=== PATIENT | male | born 1955 | race Caucasian/White ===

== ENCOUNTER 2023-06-30 16:51 | Outpatient (OUT) | payer MEDICARE, SELFPAY ==
[2023-06-30 17:19] LABS: Bilirubin Urine NEGATIVE (NEGATIVE); Blood Urine NEGATIVE (NEGATIVE); Clarity Urine CLEAR (CLEAR); Color Urine DK. YELLOW (YELLOW); Glucose Urine UA NEGATIVE (NEGATIVE); Ketones Urine TRACE mg/dL (NEGATIVE); Leukocyte Esterase Urine NEGATIVE (NEGATIVE); Nitrite Urine NEGATIVE (NEGATIVE); Protein Urine 100 mg/dL (NEG/TRACE); Specific Gravity Urine >=1.030 (1.005-1.025)
[2023-06-30 17:35] LABS: Bacteria Urine TRACE #/HPF (NONE SEEN); Cast Seen? NONE SEEN #/LPF (NONE SEEN); Crystals Seen? None Seen #/HPF (None Seen); Mucus Urine MODERATE (NONE SEEN); RBC Urine 0-2 #/HPF (0-2); Squamous Epithelial Cell Urine FEW #/LPF (NONE/RARE); WBC Urine NONE SEEN #/HPF (NONE SEEN)
[2023-06-30 17:51] LABS: Estimated Average Glucose 154 mg/dL
== END 2023-06-30 16:52 | disposition home or self-care (01) ==
LOC: LAB 16:55
PROVIDERS: PCP Nurse Practitioner; Visit Provider Nurse Practitioner
DX: R82.90 Unspecified abnormal findings in urine (principal); E11.9 Type 2 diabetes mellitus without complications
CPT/HCPCS: 36415; 81001; 83036

== ENCOUNTER 2024-07-28 15:05 | Outpatient (OUT) | payer MEDICARE, SELFPAY ==
[2024-07-28 15:50] LABS: Estimated Average Glucose 140 mg/dL; Glycohemoglobin A1C 6.5 % (4.5-6.2)
[2024-07-28 15:55] LABS: Basophils Absolute Auto 0.1 10^3/uL (0.0-0.1); Basophils Percent Auto 1.6 % (0.2-2.0); Eosinophils Absolute Auto 0.4 10^3/uL (0.0-0.7); Eosinophils Percent Auto 6.1 % (0.9-7.0); Hematocrit 41.8 % (42.0-54.0); Hemoglobin 14.1 g/dL (14.0-18.0); Immature Granulocytes Abs Auto 0.02 10^3/uL (0.00-0.03); Immature Granulocytes Pct Auto 0.3 % (0.0-0.5); Lymphocytes Absolute Auto 1.9 10^3/uL (1.2-3.8); Mean Corpuscular HGB Conc 33.7 g/dL (29.9-35.2); Mean Corpuscular Hemoglobin 30.2 pg (25.9-34.0); Mean Corpuscular Volume 89.5 fL (80.0-94.0); Mean Platelet Volume 11.9 fL (9.5-13.5); Monocytes Absolute Auto 0.5 10^3/uL (0.3-0.8); Monocytes Percent Auto 8.5 % (1.7-12.0); Neutrophils Absolute Auto 2.9 10^3/uL (1.4-6.5); Neutrophils Percent Auto 50.5 % (43.0-75.0); Platelet Count 208 10^3/uL (150-450); Red Blood Count 4.67 10^6/uL (4.70-6.10); Red Cell Distribution Width 12.8 % (11.0-15.0); White Blood Count 5.8 10^3/uL (4.0-11.0)
[2024-07-28 16:00] LABS: Alanine Aminotransferase 40 U/L (16-63); Albumin Globulin Ratio 1.2; Albumin Level 3.7 g/dL (3.4-5.0); Alkaline Phosphatase 73 U/L (46-116); Aspartate Amino Transferase 21 U/L (15-37); BUN Creatinine Ratio 12.6; Bilirubin Total 0.3 mg/dL (0.2-1.0); Calcium 9.1 mg/dL (8.5-10.1); Chloride 104 mmol/L (98-107); Chol HDL Ratio 2.7; Cholesterol 122 mg/dL (<=200); Estimated GFR (African America >60 (>=60); Estimated GFR (Non-African Ame >60 (>=60); Globulin 3.2 g/dL; Glucose 128 mg/dL (74-106); HDL Cholesterol 45 mg/dL (40-60); LDL Cholesterol Calculated 58.8 mg/dL; Potassium 4.6 mmol/L (3.5-5.1); Sodium 138 mmol/L (136-145); Total Protein 6.9 g/dL (6.4-8.2); Triglycerides 91 mg/dL (<=150); VLDL CHOLESTEROL 18.2 mg/dL
[2024-07-28 16:13] LABS: Anion Gap 12.4; Carbon Dioxide 26.2 mmol/L (21.0-32.0)
[2024-07-28 16:20] LABS: Prostate Specific Antigen Scrn 2.01 ng/mL (<=4.00)
[2024-07-28 17:05] LABS: Creatinine Urine Random 65.71 mg/dL (20.00-300.00); Microalbum Creatinine Ratio Ur 57.8 mg/g (0.0-29.9); Microalbumin Urine Random 3.8 mg/dL (<=30.0)
[2024-07-28 17:30] LABS: Bilirubin Urine NEGATIVE (NEGATIVE); Blood Urine NEGATIVE (NEGATIVE); Clarity Urine CLEAR (CLEAR); Color Urine LT. YELLOW (YELLOW); Glucose Urine UA >=1000 mg/dL (NEGATIVE); Ketones Urine NEGATIVE (NEGATIVE); Leukocyte Esterase Urine NEGATIVE (NEGATIVE); Nitrite Urine NEGATIVE (NEGATIVE); Protein Urine NEGATIVE (NEG/TRACE); Urine Microscopic Indicated NO; Urobilinogen Urine 0.2 EU/dL (0.2-1.0); pH Urine 5.5 (5.0-9.0)
== END 2024-07-28 15:06 | disposition home or self-care (01) ==
LOC: LAB 15:07
PROVIDERS: PCP Nurse Practitioner; Visit Provider Nurse Practitioner
DX: D50.9 Iron deficiency anemia, unspecified (principal); I10 Essential (primary) hypertension; E55.9 Vitamin D deficiency, unspecified; E78.2 Mixed hyperlipidemia; E11.9 Type 2 diabetes mellitus without complications; Z12.5 Encounter for screening for malignant neoplasm of prostate
CPT/HCPCS: 36415; 80053; 80061; 81003; 82043; 82306; 82570; 83036; 83540; 85025; G0103

== ENCOUNTER 2024-09-05 23:14 | Emergency (ER) | payer MEDICARE, SELFPAY ==
[2024-09-05 23:22] VITALS: BP 172/73; PULSE 80; TEMP 36.8; O2SAT 98; BMI 31.2
--- NOTE | 2024-09-05 23:49 | XR_ITS ---
The [address] [address] Patient Name: ZACHARY ALVA MRN: [id number] date: 1955 Sex: M Assigned Patient Location: ER Current Patient Location: ED.MAIN Accession/Order Number: [id number] Exam Date: 09/05/2024 23:52 Report Date: 09/06/2024 00:30 At the request of: LAURA MARKER Procedure: XR foot LT min 3V XR foot LT min 3V, 09/05/2024 10:52 PM CDT: History: mid foot injury. . Comparison: None. Technique: 3 views left foot Findings/Impression: There is no acute fracture or malalignment. There is prominent dorsal soft tissue swelling of the midfoot. Electronically authenticated by: ROSALINA ROJAS Date: 09/06/2024 00:30
--- NOTE | 2024-09-05 23:50 | ED_ITS ---
HPI HPI - Extremity Injury (Lower) General Chief Complaint: Extremity Injury, Lower Stated Complaint: L FOOT INJURY [facility] Time Seen by Provider: 09/05/24 23:49 Source: patient Mode of arrival: Wheelchair Limitations: no limitations History of Present Illness HPI Narrative: This 69-year-old male presents for evaluation of left midfoot pain. The patient was at work and a large elevator weight fell onto his left foot. He has a picture on his phone of a large area of swelling at the midfoot area. The swelling has since gone down somewhat. He has pain with weightbearing. He was wearing tennis shoes and socks and did not get hit directly onto his skin with the weight. He does have an abrasion over the midfoot with swelling. He did not fall. He has no additional injuries or complaints. He declines a tetanus shot. He does have a history of type 2 diabetes and neuropathy for which he takes gabapentin. He denies that he is having a lot of pain but his family member states that he sounds like a [place] when he tries to weight-bear. Related Data Home Medications ?Medication ?Instructions ?Recorded ?Confirmed amlodipine 10 mg tablet mg 09/05/24 dapagliflozin propanediol 5 mg mg 09/05/24 tablet (Farxiga) gabapentin 300 mg capsule mg 09/05/24 glipizide 5 mg tablet mg 09/05/24 hydrochlorothiazide 12.5 mg capsule mg 09/05/24 lisinopril 40 mg tablet mg 09/05/24 metformin 500 mg tablet,extended mg PO 09/05/24 release 24 hr simvastatin 10 mg tablet mg 09/05/24 Allergies Allergy/AdvReac Type Severity Reaction Status Date / Time Penicillins Allergy Unknown Unknown Verified 09/05/24 23:29 Opioid HPI Opioid Management Most Recent Pain and Opioid Data: Last Pain Scale 5 09/05/24 23:34 Last ED Pain Assessment 09/05/24 23:34 Review of Systems ROS Status of ROS 10 or more systems reviewed and unremark able except as noted in history and below PFSH PFSH Social History Little interest or pleasure in doing things: not at all Feeling down, depressed, or hopeless: not at all Exam Narrative Exam Narrative: Vital signs and Nursing Notes reviewed: Patient is afebrile with a normal pulse, blood pressure is elevated at 172/73, he is not hypoxic with pulse ox of 98% on room air General: Awake, alert, oriented, no acute distress, lying comfortably on the stretcher HEENT: Normocephalic atraumatic, mucous membranes are moist and pink, eyes are clear Chest: Lungs are clear to auscultation with good air entry, there is no wheezing rhonchi or rales appreciated no accessory muscle use, patient is speaking in complete sentences-no chest wall tenderness to palpation CVS: Regular rate and rhythm S1-S2, no murmurs rubs or gallops, pulses are brisk and equal bilaterally Extremities: There is mild to moderate swelling over the left midfoot with a superficial abrasion over the midfoot as well. Dorsalis pedis pulses brisk. There is no active bleeding. There is no bony tenderness or deformity to the toes. Patient is able to flex extend and rotate the foot without difficulty. Skin: Abrasion over the left midfoot Neuro: No focal deficits Constitutional Vital Signs, click to edit/add: Last Vital Signs Temp 98.2 F 09/05/24 23:22 Pulse 80 09/05/24 23:22 Resp 18 09/05/24 23:22 BP 172/73 H 09/05/24 23:22 Pulse Ox 98 09/05/24 23:22 O2 Del Method Room Air 09/05/24 23:22 Course Vital Signs Vital signs: Vital Signs Temperature 98.2 F 09/05/24 23:22 Pulse Rate 80 09/05/24 23:22 Respiratory Rate 18 09/05/24 23:22 Blood Pressure 172/73 H 09/05/24 23:22 Pulse Oximetry 98 09/05/24 23:22 Oxygen Delivery Method Room Air 09/05/24 23:22 Temperature 98.2 F 09/05/24 23:22 Pulse Rate 80 09/05/24 23:22 Respiratory Rate 18 09/05/24 23:22 Blood Pressure 172/73 H 09/05/24 23:22 Pulse Oximetry 98 09/05/24 23:22 Oxygen Delivery Method Room Air 09/05/24 23:22 MDM - Extremity Injury (Lower) MDM Narrative Medical decision making narrative: This 69-year-old male presents for evaluation of a left foot injury. He was at work and a weight fell on his foot while he was trying to move it. He had marked swelling initially over the midfoot. He has a superficial abrasion that he sustained when the weight hit his foot however he was wearing socks and shoes. He declined a tetanus shot. He has some mild tenderness swelling and an abrasion to the midfoot area. He is otherwise neurovascularly intact. He had taken ibuprofen prior to arrival. X-ray of the extremity was read by radiology and does not show any acute fracture but does show some soft tissue swelling. While in the emergency department ice was applied over the left foot and the swelling in the midfoot continued to decrease. He declined a postop shoe as well as his tetanus shot but was agreeable to an Jacky wrap. A 3 inch Jacky wrap was placed around the midfoot for comfort and compression. No medications were needed while he was a patient in the emergency department he was discharged home to follow-up with outpatient Workmen's Comp. as needed. Medical Records Medical records narrative: The [place] [id number] XRay Report Signed Patient: ZACHARY ALVA MR#: [id number] : 1955 Acct:[id number] Age/Sex: 69 / M ADM Date: 09/05/24 Loc: ER Attending Dr: Ordering Physician: Mini Sharma Date of Service: 09/05/24 Procedure(s): XR foot LT min 3V Accession Number(s): [id number] cc: Lucy Lipscomb NP; Mini Sharma~ The [address] [address] Patient Name: ZACHARY ALVA MRN: [id number] date: 1955 Sex: M Assigned Patient Location: ER Current Patient Location: ED.MAIN Accession/Order Number: [id number] Exam Date: 09/05/2024 23:52 Report Date: 09/06/2024 00:30 At the request of: MINI SHARMA Procedure: XR foot LT min 3V XR foot LT min 3V, 09/05/2024 10:52 PM CDT: History: mid foot injury. . Comparison: None. Technique: 3 views left foot Findings/Impression: There is no acute fracture or malalignment. There is prominent dorsal soft tissue swelling of the midfoot. Electronically authenticated by: ROSALINA ROJAS Date: 09/06/2024 00:30 Discharge Plan Discharge Chief Complaint: Extremity Injury, Lower Clinical Impression: Contusion of foot, left Patient Disposition: Home, Self-Care Time of Disposition Decision: 00:39 Condition: Good Prescriptions / Home Meds: No Action simvastatin 10 mg tablet amlodipine 10 mg tablet hydrochlorothiazide 12.5 mg capsule gabapentin 300 mg capsule lisinopril 40 mg tablet metformin 500 mg tablet extended release 24 hr PO glipizide 5 mg tablet dapagliflozin propanediol [Farxiga] 5 mg tablet Print Language: Azeri Instructions: Foot Contusion (ED) Referrals: Lucy Lipscomb NP [Primary Care Provider] - 1 week
--- OUTSIDE RECORDS SUMMARY | 2024-09-06 00:19 | XMS_ITS | CCD ---
Demographics Address [address] [place] [id number] Preferred Language en Marital Status Rastafari Affiliation Unknown Race White Ethnic Group Not or Lati no Author Organization [facility] Care Team Providers Care Tem[place] Name Role Phone ISAÍAS LIPSCOMB Admitting Unavailable HAYHISAÍAS SOUSA Attending Unavailable AICISAÍAS ROGERS Primary Care Unavailable ISAÍAS LIPSCOMB Consulting Unavailable DO Mateus Fabian Attending Provider Lucy Lipscomb Primary Care Provider Emerson Rowland MD Primary Care Provider [phone] Ruel RISK ASSESSMENT CONSULTANT, Lucy Unavailable Mateus Fabian Admitting Unavailable Mateus Fabian Attending Unavailable Lucy Lipscomb Primary Care Unavailable Mateus Fabian Attending Unavailable Lucy Lipscomb Primary Care Unavailable Mateus Fabian Admitting Unavailable Eugenio MONROE Attending Unavailable LUCY LIPSCOMB Referring Unavailable MATEUS FABIAN Attending Unavailable MATEUS FABIAN Attending Unavailable Allergies Allergy Classification Reported Allergen(s) Allergy Type Date of Onset Reaction(s) Facility (1 source) Penicillins Drug allergy (disorder) 01-06-2017 [facility] Repository (1 source) Penicillin; Translations: [penicillin] Drug Allergy [facility] Repository Medications Current Medications Medication Drug Class(es) Dates Sig (Normalized) Sig (Original) amLODIPine 10 mg oral tablet (2 sources) Dihydropyridine Calcium Channel Chanel take 1 tablet by mouth in the morning amLODIPine (Norvasc) 10 MG tablet Take 10 mg by mouth in the morning. 0 Active ascorbic acid 500 mg chewable tablet (2 sources) Vitamin C ascorbic acid (Vitamin C) 500 MG chewable tablet every 12 (twelve) hours. 0 Active cetirizine hydrochloride 10 mg oral tablet (2 sources) Histamine-1 Receptor Antagonist take 1 tablet by mouth once daily cetirizine (ZyrTEC ALLERGY) 10 MG tablet Take 10 mg by mouth 1 (one) time each day at the same time. 0 Active Continuous Blood Gluc Primer Supervisor (FreeStyle Brigida 2 [place]) device (2 sources) Start: 02-20-2023 Continuous Blood Gluc Primer Supervisor (FreeStyle Brigida 2 [place]) device USE DAILY DIRECTED 0 02/20/2023 Active Continuous Blood Gluc Sensor (FreeStyle Brigida 2 Sensor) misc (3 sources) Start: 01-05-2024 End: 02-02-2024 Continuous Blood Gluc Sensor (FreeStyle Brigida 2 Sensor) misc Indications: Type 2 diabetes mellitus with diabetic neuropathy, without long-term current use of insulin (CMS/HCC) Apply 1 each topically in the morning for 28 days. 2 each 11 01/05/2024 02/02/2024 Active Start: 07-17-2023 End: 01-05-2024 Continuous Blood Gluc Sensor (FreeStyle Brigida 2 Sensor) misc USE 1 EACH DIRECTED 0 07/17/2023 01/05/2024 Discontinued (Reorder) dapagliflozin 5 mg oral tablet (2 sources) Sodium-Glucose Cotransporter 2 Inhibitor Start: 01-05-2024 take 1 tablet by mouth once daily dapagliflozin (Farxiga) 5 MG Indications: Type 2 diabetes mellitus without complications (CMS/HCC) TAKE 1 TABLET BY MOUTH EVERY DAY 90 tablet 0 01/05/2024 Active ferrous sulfate 325 mg oral tablet (2 sources) take 1 tablet by mouth once daily ferrous sulfate 325 (65 Fe) MG tablet Take 325 mg by mouth 1 (one) time each day at the same time. 0 Active fluticasone propionate 0.05 mg/actuat metered dose nasal spray (2 sources) Corticosteroid take 2 spray(s) nasal route once daily fluticasone (Flonase) 50 MCG/ACT nasal spray Administer 2 sprays into each nostril 1 (one) time each day at the same time. 0 Active gabapentin 300 mg oral capsule (2 sources) Anti-epileptic Agent take 1 capsule by mouth in the morning, then take 1 capsule by mouth in the evening, then take 1 capsule by mouth at bedtime gabapentin (Neurontin) 300 MG capsule Take 300 mg by mouth in the morning and 300 mg in the evening and 300 mg before bedtime. 0 Active glipiZIDE 5 mg oral tablet (2 sources) Sulfonylurea Start: 01-05-2024 take 1 tablet by mouth twice daily glipiZIDE (Glucotrol) 5 MG tablet Indications: Type 2 diabetes mellitus without complications (CMS/HCC) TAKE 1 TABLET BY MOUTH TWICE A DAY 180 tablet 0 01/05/2024 Active hydroCHLOROthiazide 12.5 mg oral capsule (2 sources) Thiazide Diuretic take 1 capsule by mouth in the morning hydroCHLOROthiazide (Microzide) 12.5 MG capsule Take 12.5 mg by mouth in the morning. 0 Active lisinopril 40 mg oral tablet (2 sources) Angiotensin Converting Enzyme Inhibitor take 1 tablet by mouth in the morning lisinopril 40 MG tablet Take 40 mg by mouth in the morning. 0 Active 24 hr metFORMIN hydrochloride 500 mg extended release oral tablet (2 sources) Biguanide Start: 01-05-2024 take 2 tablets by mouth twice daily metFORMIN XR (Glucophage-XR) 500 MG 24 hr tablet Indications: Type 2 diabetes mellitus without complications (CMS/HCC) TAKE 2 TABLETS BY MOUTH TWICE A DAY 360 tablet 0 01/05/2024 Active rOPINIRole 2 mg oral tablet (2 sources) Nonergot Dopamine Agonist take 1 tablet by mouth once daily rOPINIRole (Requip) 2 MG tablet Take 2 mg by mouth 1 (one) time each day at the same time. 0 Active simvastatin 10 mg oral tablet (2 sources) HMG-CoA Reductase Inhibitor Start: 01-05-2024 take 1 tablet by mouth once daily at bedtime simvastatin (Zocor) 10 MG tablet Indications: Hyperlipidemia, unspecified (CMS/HCC) TAKE 1 TABLET BY MOUTH EVERYDAY AT BEDTIME 90 tablet 0 01/05/2024 Active Problems Active Problems Problem Classification Problem Date Documented Date Episodic/Chronic Diabetes mellitus with complications (3 sources) Type 2 diabetes mellitus; Translations: [Type 2 diabetes mellitus with diabetic neuropathy, unspecified] Onset: 01-05-2024 01-05-2024 Chronic Diabetes mellitus without complication (4 sources) Type 2 diabetes mellitus without complications; Translations: [TYPE 2 DM WITHOUT COMPLICATIONS] Onset: 02-18-2023 Chronic Other screening for suspected conditions (not mental disorders or infectious disease) (1 source) Encounter for screening for malignant neoplasm of prostate; Translations: [ENC SCREEN MALIG NEOPLASM PROSTATE] Onset: 02-21-2023 Episodic Other upper respiratory disease (2 sources) Deviated nasal septum; Translations: [Deviated nasal septum] Onset: 01-12-2024 01-12-2024 Episodic Unclassified (1 source) Encounter for preprocedural cardiovascular examination; Translations: [Encounter for preprocedural cardiovascular examination] Onset: 01-05-2024 Past or Other Problems Problem Classification Problem Date Documented Da te Episodic/Chronic Other lower respiratory disease (2 sources) H/O: respiratory disease; Translations: [Personal history of other diseases of the respiratory system] Onset: 08-25-2023 08-25-2023 Episodic Results Test Name Value Interpretation Reference Range Facility [facility] 01-12-2024 L Specimen: [id number] Received: 01/12/24 Status: JOHNY Clark Num: [id number] Spec Type: Surgical Subm Dr: Mateus Fabian DO Tissues: A Cartilage - Shavings (NASAL CART) Procedures: HE, Gross/Micro L3 Age/ Patient Sex Location Account Attending Physician Eulogio Alva 68/M [place] [id number] Mateus Fabian DO SPEC NUM: [id number] RECD: 01/12/24 STATUS: JOHNY CLARK NUM: [id number] DORA: 01/12/24- SUBM DR: Mateus Fabian DO ENTERED: 01/12/[address] [facility] [address]: Deni [facility] SPEC TYPE: Surgical DEPT: S ENTERED BY: [id number] RECV BY: [id number] ORDERED: HE, Gross/Micro L3 ORDERED: HE, Gross/Micro L3 Pathological Diagnosis Nasal cartilage, septoplasty: - See gross description. Clinical Information Deviated septum/enlarged turbinates Gross Description Received in formalin labeled with the patient's name, date of and nasal cartilage is a 3.8 x 3.0 x 0.6 cm aggregate of jaimes-burroughs cartilaginous tissue consistent with nasal cartilage. There are no polyps or suspicious foci identified grossly. A gross photo is taken. Gross examination only. CPT Codes 83596 Gross Photo -- -- Specimen: [id number] Received: 01/12/24 Status: JOHNY Clark Num: [id number] Spec Type: Surgical Subm Dr: Mateus Fabian DO Tissues: A Cartilage - Shavings (NASAL CART) Procedures: Mik CAN/Jossy L3 -- Patient: Eulogio Alva [id number] (Continued) -- Signed (signatu re on file) Patricia Rich MD 01/14/24 1312 Normal [facility] Basic Metabolic Panelon Anion gap [Moles/Vol] 10.3 mmol/L Normal 6.0-15.0 [facility] Comment on above: Performed By: #### B MP #### [facility] [address] Calcium [Mass/Vol] 9.8 mg/dL Normal 8.6-10.3 [facility] Comment on above: Result Comment: PERF ORMED BY: [place] [address] PATHOLOGIST CHANGE ANALYST HALLEY GUTIERREZ M.D. Performed By: #### B MP #### [facility] [address] [place] [address] [place] Chloride [Moles/Vol] 103 mmol/L Normal 98-107 [facility] Comment on above: Performed By: #### B MP #### [facility] [address] [place] [address] [place] CO2 [Moles/Vol] 30.6 mmol/L Normal 21.0-31.0 [facility] Comment on above: Performed By: #### B MP #### [address] Creatinine [Mass/Vol] 1.07 mg/dL Normal 0.70-1.30 [facility] Comment on above: Performed By: #### B MP #### [facility] [address] [place] [address] [place] GFR/1.73 sq M.predicted MDRD (S/P/Bld) [Vol rate/Area] mL/min/{1.73_m2} Normal [facility] Comment on above: Performed By: #### B MP #### [place] [address] [place] Glucose [Mass/Vol] 176 mg/dL High 70-100 [facility] Comment on above: Result Comment: Chicken Glucose Reference Range is dependent on time and content of last meal. Glucose of more than 200 mg/dL in a nonstressed, ambulatory subject supports the diagnosis of Diabetes Mellitus. ADA recommended reference range Performed By: #### B MP #### [facility] [address] Potassium [Moles/Vol] 3.9 mmol/L Normal 3.5-5.1 [facility] Comment on above: Performed By: #### B MP #### [facility] [address] Sodium [Moles/Vol] 140 mmol/L Normal 136-145 [facility] Comment on above: Performed By: #### B MP #### [facility] [address] Urea nitrogen [Mass/Vol] 20 mg/dL Normal 7-25 [facility] Comment on above: Performed By: #### B MP #### [address] Basophils Auto (Bld) [#/Vol] Ordered By: Mateus Fabian on 01-05-2024 Basophils (Bld) [#/Vol] 0.1 10*3/uL 0.0-0.2 [facility] Basophils/100 WBC Auto (Bld) Ordered By: Mateus Fabian on 01-05-2024 Basophils/100 WBC (Bld) 1.1 % . [facility] Calcium [Mass/volume] in Ser um or PlasmaOrdered By: Mateus Fabian on 01-05-2024 Calcium [Mass/Vol] 9.8 mg/dL 8.6-10.3 [facility] Carbon dioxide, total [Moles /volume] in Serum or PlasmaOrdered By: Mateus Fabian on 01-05-2024 CO2 [Moles/Vol] 30.6 mmol/L 21.0-31.0 [facility] Chloride [Moles/volume] in S francine or PlasmaOrdered By: Mateus Fabian on 01-05-2024 Chloride [Moles/Vol] 103 mmol/L 98-107 [facility] Complete Blood Count Auto Di ffon 01-05-2024 Basophils (Bld) [#/Vol] 0.1 10*3/uL Normal 0.0-0.2 [facility] Comment on above: Result Comment: PERF ORMED BY: [place] [address] PATHOLOGIST CHANGE ANALYST HALLEY GUTIERREZ M.D. Performed By: #### C BC #### [place] [address] [place] Basophils/100 WBC (Bld) 1.1 % Normal . [facility] Comment on above: Performed By: #### C BC #### [facility] [address] Eosinophils (Bld) [#/Vol] 0.2 10*3/uL Normal 0.0-0.45 [facility] Comment on above: Performed By: #### C BC #### [facility] [address] Eosinophils/100 WBC (Bld) 3.3 % Normal . [facility] Comment on above: Performed By: #### C BC #### [address] Erythrocyte distribution width (RBC) [Ratio] 13.9 % Normal 12.0-14.8 [facility] Comment on above: Performed By: #### C BC #### [address] Hematocrit (Bld) [Volume fraction] 40.7 % Normal 38.8-50.0 [facility] Comment on above: Performed By: #### C BC #### [address] Hemoglobin (Bld) [Mass/Vol] 13.6 g/dL Normal 13.0-17.0 [facility] Comment on above: Performed By: #### C BC #### [address] Lymphocytes (Bld) [#/Vol] 1.9 10*3/uL Normal 1.00-4.8 [facility] Comment on above: Performed By: #### C BC #### [address] Lymphocytes/100 WBC (Bld) 34.3 % Normal . [facility] Comment on above: Performed By: #### C BC #### [address] MCH (RBC) [Entitic mass] 29.8 pg Normal 27.5-35.2 [facility] Comment on above: Performed By: #### C BC #### [facility] [address] MCV (RBC) [Entitic vol] 89.1 fL Normal 83.5-101 [facility] Comment on above: Performed By: #### C BC #### [facility] [address] Mean Corpuscular HGB Conc 33.4 g/dL Normal 32.5-35.6 [facility] Comment on above: Performed By: #### C BC #### [facility] [address] Monocytes (Bld) [#/Vol] 0.5 10*3/uL Normal 0.0-0.8 [facility] Comment on above: Performed By: #### C BC #### [facility] [address] Monocytes/100 WBC (Bld) 8.0 % Normal . [facility] Comment on above: Performed By: #### C BC #### [facility] [address] Neutrophils (Bld) [#/Vol] 3.0 10*3/uL Normal 1.8-7.7 [facility] Comment on above: Performed By: #### C BC #### [facility] [address] Neutrophils/100 WBC (Bld) 53.3 % Normal . [facility] Comment on above: Performed By: #### C BC #### [facility] [address] NRBC% 0.1 /100{WBC} Normal 0-0.5 [facility] Comment on above: Performed By: #### C BC #### [facility] [address] Platelet mean volume (Bld) [Entitic vol] 10.3 fL High 6.6-10.1 [facility] Comment on above: Performed By: #### C BC #### [facility] [address] Platelets (Bld) [#/Vol] 192 10*3/uL Normal 150-450 [facility] Comment on above: Performed By: #### C BC #### [facility] [address] RBC (Bld) [#/Vol] 4.57 10*6/uL Normal 3.90-5.60 [facility] Comment on above: Performed By: #### C BC #### [facility] [address] WBC (Bld) [#/Vol] 5.6 10*3/uL Normal 4.1-10.5 [facility] Comment on above: Performed By: #### C BC #### [address] Creatinine [Mass/volume] in Serum or PlasmaOrdered By: Mateus Fabian on 01-05-2024 Creatinine [Mass/Vol] 1.07 mg/dL 0.70-1.30 [facility] ECG 12 lead ECGon 01-05-2024 ECG 12 lead ECG [facility] [employer] [address] [place] [address] Electrocardiograph Report Signed Patient: Eulogio Alva MR#: [id number] : 1955 Acct:[id number] Age/Sex: 68 / M ADM Date: 01/05/24 Loc: Room: Type: [facility] Attending Dr: Mateus Fabian DO Ordering Provider: Mateus Fabian DO Date of Service: 01/05/2405/23/1459 ECG/ECG 12 lead ECG: pst Copies to: Test Reason : Blood Pressure : / mmHG Vent. Rate : 075 BPM Atrial Rate : 075 BPM P-R Int : 136 ms QRS Dur : 094 ms QT Int : 384 ms P-R-T Axes : 033 075 044 degrees QTc Int : 428 ms Normal sinus rhythm Nonspecific T wave abnormality Abnormal ECG No previous ECGs available Confirmed by NILSA ASHLEY MD ([id number]) on 01/06/2024 2:41:39 PM Referred By: Electronically Signed By:NILSA ASHLEY MD Transcribed By: MUS Signed By Nilsa Ashley MD 0 01/06/24 1441 Normal [facility] Eosinophils Auto (Bld) [#/Vo l]Ordered By: Mateus Fabian on 01-05-2024 Eosinophils (Bld) [#/Vol] 0.2 10*3/uL 0.0-0.45 [facility] Eosinophils/100 WBC Auto (Bl d)Ordered By: Mateus Fabian on 01-05-2024 Eosinophils/100 WBC (Bld) 3.3 % . [facility] Erythrocyte distribution wid th Auto (RBC) [Ratio]Ordered By: Mateus Fabian on 01-05-2024 Erythrocyte distribution width (RBC) [Ratio] 13.9 % 12.0-14.8 [facility] Glucose [Mass/volume] in Ser um or PlasmaOrdered By: Mateus Fabian on 01-05-2024 Glucose [Mass/Vol] 176 mg/dL 70-100 [facility] Comment on above: ADA recommended refe rence rangeRandom Glucose Reference Range is dependent on time and content of last meal. Glucose of more than 200 mg/dL in a nonstressed, ambulatory subject supports the diagnosis of Diabetes Mellitus. Hematocrit Auto (Bld) [Volum e fraction]Ordered By: Mateus Fabian on 01-05-2024 Hematocrit (Bld) [Volume fraction] 40.7 % 38.8-50.0 [facility] Hemoglobin [Mass/volume] in BloodOrdered By: Mateus Fabian on 01-05-2024 Hemoglobin (Bld) [Mass/Vol] 13.6 g/dL 13.0-17.0 [facility] Leukocytes [#/volume] correc alvin for nucleated erythrocytes in Blood by Automated counOrdered By: Mateus Fabian on 01-05-2024 WBC corrected for nucl RBC Auto (Bld) [#/Vol] 5.6 10*3/uL 4.1-10.5 [facility] Lymphocytes Auto (Bld) [#/Vo l]Ordered By: Mateus Fabian on 01-05-2024 Lymphocytes (Bld) [#/Vol] 1.9 10*3/uL 1.00-4.8 [facility] Lymphocytes/100 WBC Auto (Bl d)Ordered By: Mateus Fabian on 01-05-2024 Lymphocytes/100 WBC (Bld) 34.3 % . [facility] MCH Auto (RBC) [Entitic mass ]Ordered By: Mateus Fabian on 01-05-2024 MCH (RBC) [Entitic mass] 29.8 pg 27.5-35.2 [facility] MCHC Auto (RBC) [Mass/Vol]Or dered By: Mateus Fabian on 01-05-2024 MCHC (RBC) [Mass/Vol] 33.4 g/dL 32.5-35.6 [facility] MCV Auto (RBC) [Entitic vol] Ordered By: Mateus Fabian on 01-05-2024 MCV (RBC) [Entitic vol] 89.1 fL 83.5-101 [facility] Monocytes Auto (Bld) [#/Vol] Ordered By: Mateus Fabian on 01-05-2024 Monocytes (Bld) [#/Vol] 0.5 10*3/uL 0.0-0.8 [facility] Monocytes/100 WBC Auto (Bld) Ordered By: Mateus Fabian on 01-05-2024 Monocytes/100 WBC (Bld) 8.0 % . [facility] Neutrophils Auto (Bld) [#/Vo l]Ordered By: Mateus Fabian on 01-05-2024 Neutrophils (Bld) [#/Vol] 3.0 10*3/uL 1.8-7.7 [facility] Neutrophils/100 WBC Auto (Bl d)Ordered By: Mateus Fabian on 01-05-2024 Neutrophils/100 WBC (Bld) 53.3 % . [facility] No Panel InformationOrdered By: Mateus Fabian on 01-05-2024 Estimated GFR (CKD-EPI) > 60.0 mL/Min [facility] Creatinine Clearance (Chem N/A [facility] Nucleated erythrocytes [Pres ence] in Blood by Automated countOrdered By: Mateus Fabian on 01-05-2024 Nucleated RBC Auto Ql (Bld) 0.1 /100{WBC} 0-0.5 [facility] Platelet mean volume Auto (B ld) [Entitic vol]Ordered By: Mateus Fabian on 01-05-2024 Platelet mean volume (Bld) [Entitic vol] 10.3 fL 6.6-10.1 [facility] Platelets Auto (Bld) [#/Vol] Ordered By: Mateus Fabian on 01-05-2024 Platelets (Bld) [#/Vol] 192 10*3/uL 150-450 [facility] Potassium [Moles/volume] in Serum or PlasmaOrdered By: Mateus Fabian on 01-05-2024 Potassium [Moles/Vol] 3.9 mmol/L 3.5-5.1 [facility] RBC Auto (Bld) [#/Vol]Ordere d By: Mateus Fabian on 01-05-2024 RBC (Bld) [#/Vol] 4.57 10*6/uL 3.90-5.60 [facility] Serum or plasma anion gap de terminationOrdered By: Mateus Fabian on 01-05-2024 Anion gap [Moles/Vol] 10.3 mmol/L 6.0-15.0 [facility] Sodium [Moles/volume] in Ser um or PlasmaOrdered By: Mateus Fabian on 01-05-2024 Sodium [Moles/Vol] 140 mmol/L 136-145 [facility] Urea nitrogen [Mass/volume] in Serum or PlasmaOrdered By: Mateus Fabian on 01-05-2024 Urea nitrogen [Mass/Vol] 20 mg/dL 7-25 [facility] WBC Auto (Bld) [#/Vol]Ordere d By: Mateus Fabian on 01-05-2024 WBC (Bld) [#/Vol] 5.6 10*3/uL 4.1-10.5 [facility] Patient Letter FTon [address] [facility] November 03, 2023 EULOGIO ALVA [address] [place] [address] : 1955 Dear Mr. Avla, Thank you for choosing [facility] for your healthcare needs. Your consultation appointment with Dr Eugenio Monroe is scheduled for January 12, 2024 at 3:20pm in our [place] office. That office address is: [facility], [address], [address], [place]. Please plan to arrive 15 minutes prior to the appointment time and bring your insurance card and photo ID, as well as any copay you are responsible for. If you have any questions, please contact us at [phone]. Sincerely, [facility] General Surgery Normal [facility] Physician Referralon 023 Physician Referral [phone] [id number] Normal [facility] CBC AUTO DIFFon 02-18-2023 BASO # 0.1 103/ul Normal 0.0-0.1 [facility] Comment on above: Performed By: #### C BC #### [facility] [address] [place] [address] Dr. Sully Jackson Basophils/100 WBC (Bld) 1.0 % Normal 0.2-2.0 [facility] Comment on above: Performed By: #### C BC #### [facility] [address] [place] [address] Dr. Sully Jackson EO # 0.3 103/ul Normal 0.0-0.7 [facility] Comment on above: Performed By: #### C BC #### [facility] [address] [place] [address] Dr. Sully Jackson Eosinophils/100 WBC (Bld) 4.9 % Normal 0.9-7.0 [facility] Comment on above: Performed By: #### C BC #### [facility] [address] [place] [address] Dr. Sully Jackson Erythrocyte distribution width (RBC) [Ratio] 12.4 % Normal 11.0-15.0 [facility] Comment on above: Performed By: #### C BC #### [facility] [address] [place] [address] Dr. Sully Jackson Hematocrit (Bld) [Volume fraction] 40.1 % Critically low 42.0-54.0 [facility] Comment on above: Performed By: #### C BC #### [facility] [address] [place] [address] Dr. Sully Jackson Hemoglobin (Bld) [Mass/Vol] 13.3 g/dL Critically low 14.0-18.0 [facility] Comment on above: Performed By: #### C BC #### [facility] [address] [place] [address] Dr. Sully Jackson IG # 0.01 10e3/ul Normal 0.00-0.03 [facility] Comment on above: Performed By: #### C BC #### [facility] [address] [place] [address] Dr. Sully Jackson IG % 0.2 % Normal 0.0-0.5 [facility] Comment on above: Performed By: #### C BC #### [facility] [address] [place] [address] Dr. Sully Jackson LYMPH # 2.2 103/ul Normal 1.2-3.8 [facility] Comment on above: Performed By: #### C BC #### [facility] [address] [place] [address] Dr. Sully Jackson Lymphocytes/100 WBC (Bld) 35.3 % Normal 20.5-60.0 [facility] Comment on above: Performed By: #### C BC #### [facility] [address] [place] [address] Dr. Sully Jackson MANUAL DIFF REQ NO Normal [facility] Comment on above: Performed By: #### C BC #### [facility] [address] [place] [address] Dr. Sully Jackson MCH (RBC) [Entitic mass] 29.4 pg Normal 25.9-34.0 [facility] Comment on above: Performed By: #### C BC #### [facility] [address] [place] [address] Dr. Sully Jackson MCHC (RBC) [Mass/Vol] 33.2 g/dL Normal 29.9-35.2 [facility] Comment on above: Performed By: #### C BC #### [facility] [address] [address] [address] Sully Jackson MCV (RBC) [Entitic vol] 88.7 fL Normal 80.0-94.0 [facility] Comment on above: Performed By: #### C BC #### [facility] [address] [address] [address] Sully Jackson MONO # 0.5 103/ul Normal 0.3-0.8 [facility] Comment on above: Performed By: #### C BC #### [facility] [address] [address] [address] Sully Jackson Monocytes/100 WBC (Bld) 8.0 % Normal 1.7-12.0 [facility] [facility] [place] Comment on above: Performed By: #### C BC #### [facility] [address] [place] [address] Dr. Sully Jackson NEUT # 3.1 103/ul Normal 1.4-6.5 [facility] Comment on above: Performed By: #### C BC #### [facility] [address] [place] [address] Dr. Sully Jackson Neutrophils/100 WBC (Bld) 50.6 % Normal 43.0-75.0 [facility] Comment on above: Performed By: #### C BC #### [facility] [address] [address] [address] Sully Jackson Platelet mean volume (Bld) [Entitic vol] 12.0 fL Normal 9.5-13.5 [facility] Comment on above: Performed By: #### C BC #### [facility] [address] [address] [address] Sully Jackson PLT 218 103/ul Normal 150-450 [facility] Comment on above: Performed By: #### C BC #### [facility] [address] [address] [address] Sully Jackson RBC 4.52 106/ul Critically low 4.70-6.10 [facility] Comment on above: Performed By: #### C BC #### [facility] [address] [address] [address] Sully Jackson WBC 6.1 103/ul Normal 4.0-11.0 [facility] Comment on above: Performed By: #### C BC #### [facility] [address] [address] [address] Sully Jackson GLYCOHEMOGLOBIN A1Con 2022 ADA RECOMMENDATION SEE BELOW Normal [facility] Comment on above: Result Comment: ADA RECOMMENDED LIMIT 4.0 - 6.0 ADA THERAPEUTIC TARGET < 7.0 ACTION SUGGESTED > 7.0 Performed By: #### A 1C #### [facility] [address] [address] [address] Sully Jackson Glucose [Mass/Vol] 157 mg/dL Normal [facility] Comment on above: Performed By: #### A 1C #### [facility] [address] [place] [address] Dr. Sully Jackson HbA1c (Bld) [Mass fraction] 7.1 % Critically high 4.5-6.2 [facility] Comment on above: Performed By: #### A 1C #### [facility] [address] [place] [address] Dr. Sully Jackson LIPID PROFILEon 02-18-2023 CHOL-HDL RATIO NORM SEE BELOW Normal [facility] Comment on above: Result Comment: 3.3 - 4.4 LOW RISK 4.4 - 7.1 AVERAGE RISK 7.1 - 11.0 MODERATE RISK >11.0 HIGH RISK Performed By: #### L IPID, CMP #### [facility] [address] [place] [address] Dr. Sully Jackson Cholesterol [Mass/Vol] 139 mg/dL Normal <=200 [facility] Comment on above: Performed By: #### L IPID, CMP #### [facility] [address] [place] [address] Dr. Sully Jackson Cholesterol in HDL [Mass/Vol] 41 mg/dL Normal 40-60 [facility] Comment on above: Performed By: #### L IPID, CMP #### [facility] [address] [address] [address] Sully Jackson Cholesterol in LDL [Mass/Vol] 68.0 mg/dL Normal [facility] Comment on above: Performed By: #### L IPID, CMP #### [facility] [address] [place] [address] Dr. Sully Jackson Cholesterol.total/Cholest layton in HDL [Mass ratio] 3.4 {ratio} Normal [facility] Comment on above: Performed By: #### L IPID, CMP #### [facility] [address] [place] [address] Dr. Sully Jackson HDL NORMAL > or = 60 mg/dl - LOW CARDIOVASCULAR RISK <40 mg/dl - HIGH CARDIOVASCULAR RISK Normal [facility] Comment on above: Performed By: #### L IPID, CMP #### [facility] [address] [place] [address] Dr. Sully Jackson LDL CALC NORMAL SEE BELOW Normal [facility] Comment on above: Result Comment: <100 mg/dl OPTIMAL 100 - 129 mg/dl NEAR OR ABOVE OPTIMAL 130 - 159 mg/dl BORDERLINE HIGH 160 - 189 mg/dl HIGH >190 mg/dl VERY HIGH Performed By: #### L IPID, CMP #### [facility] [address] [place] [address] Dr. Sully Jackson Triglyceride [Mass/Vol] 150 mg/dL Normal <=[address] [facility] Comment on above: Performed By: #### L IPID, CMP #### [facility] [address] [place] [address] Dr. Sully Jackson VLDL CALC 30.0 mg/dL Normal [facility] Comment on above: Performed By: #### L IPID, CMP #### [facility] [address] [place] [address] Dr. Sully Jackson MICROALBUMIN, RAND URon 01-29 mALB 26.3 mg/L Normal <=30.0 [facility] Comment on above: Performed By: #### M ALBR #### [facility] [address] [place] [address] Dr. Sully Jackson PROF 14(COMP METB)on 023 Albumin [Mass/Vol] 4.3 g/dL Normal 3.4-5.0 [facility] Comment on above: Performed By: #### L IPID, CMP #### [facility] [address] [address] [address] Sully Jackson Albumin/Globulin [Mass ratio] 1.4 {ratio} Normal [facility] Comment on above: Performed By: #### L IPID, CMP #### [facility] [address] [address] [address] Sully Jackson ALP [Catalytic activity/Vol] 60 U/L Normal 46-116 [facility] Comment on above: Performed By: #### L IPID, CMP #### [facility] [address] [address] [address] Sully Jackson ALT [Catalytic activity/Vol] 36 U/L Normal 16-63 [facility] Comment on above: Performed By: #### L IPID, CMP #### [facility] [address] [address] [address] Sully Jackson Anion gap [Moles/Vol] 10.4 mmol/L Normal [facility] Comment on above: Performed By: #### L IPID, CMP #### [facility] [address] [place] [address] Dr. Sully Jackson AST [Catalytic activity/Vol] 25 U/L Normal 15-37 [facility] Comment on above: Performed By: #### L IPID, CMP #### [facility] [address] [address] [address] Sully Jackson Bilirubin [Mass/Vol] 0.5 mg/dL Normal 0.2-1.0 [facility] Comment on above: Performed By: #### L IPID, CMP #### [facility] [address] [address] [address] Sully Jackson Calcium [Mass/Vol] 9.0 mg/dL Normal 8.5-10.1 [facility] Comment on above: Performed By: #### L IPID, CMP #### [facility] [address] [place] [address] Dr. Sully Jackson Chloride [Moles/Vol] 103 mmol/L Normal 98-107 [facility] Comment on above: Performed By: #### L IPID, CMP #### [facility] [address] [address] [address] Sully Jackson CO2 [Moles/Vol] 30.6 mmol/L Normal 21.0-32.0 [facility] Comment on above: Performed By: #### L IPID, CMP #### [facility] [address] [place] [address] Dr. Sully Jackson Creatinine [Mass/Vol] 1.00 mg/dL Normal 0.70-1.30 [facility] Comment on above: Performed By: #### L IPID, CMP #### [facility] [address] [place] [address] Dr. Sully Jackson EGFR-AF [place]OREAN >60 Normal >=60 [facility] Comment on above: Performed By: #### L IPID, CMP #### [facility] [address] [place] [address] Dr. Sully Jackson EGFR-NON AF [place]ORE[place] >60 Normal >=60 [facility] Comment on above: Performed By: #### L IPID, CMP #### [facility] [address] [place] [address] Dr. Sully Jackson Globulin (S) [Mass/Vol] 3.0 g/dL Normal [facility] Comment on above: Performed By: #### L IPID, CMP #### [facility] [address] [address] [address] Sully Jackson Glucose [Mass/Vol] 146 mg/dL Critically high 74-106 [facility] Comment on above: Performed By: #### L IPID, CMP #### [facility] [address] [place] [address] Dr. Sully Jackson Potassium [Moles/Vol] 4.0 mmol/L Normal 3.5-5.1 [facility] Comment on above: Performed By: #### L IPID, CMP #### [facility] [address] [place] [address] Dr. Sully Jackson Protein [Mass/Vol] 7.3 g/dL Normal 6.4-8.2 [facility] Comment on above: Performed By: #### L IPID, CMP #### [facility] [address] [place] [address] Dr. Sully Jackson Sodium [Moles/Vol] 140 mmol/L Normal 136-145 [facility] Comment on above: Performed By: #### L IPID, CMP #### [facility] [address] [place] [address] Dr. Sully Jackson Urea nitrogen [Mass/Vol] 14.0 mg/dL Normal 7.0-18.0 [facility] Comment on above: Performed By: #### L IPID, CMP #### [facility] [address] [place] [address] Dr. Sully Jackson Urea nitrogen/Creatinine [Mass ratio] 14.0 mg/mg Normal [facility] Comment on above: Performed By: #### L IPID, CMP #### [facility] [address] [place] [address] Dr. Sully Jackson UA RANDOM W/MICROSCOPICon AMORPHOUS CRYSTALS FEW Normal [facility] Comment on above: Performed By: #### U AMIC #### [facility] [address] [place] [address] Dr. Sully Jackson BACTERIA NONE SEEN Normal NONE SEEN [facility] Comment on above: Performed By: #### U AMIC #### [facility] [address] [place] [address] Dr. Sully Jackson Bilirubin Ql (U) SMALL Abnormal NEGATIVE [facility] Comment on above: Performed By: #### U AMIC #### [facility] [address] [place] [address] Dr. Sully Jackson CAST SEEN Abnormal NONE SEEN [facility] Comment on above: Performed By: #### U AMIC #### [facility] [address] [place] [address] Dr. Sully Jackson Clarity (U) CLEAR Normal CLEAR [facility] Comment on above: Performed By: #### U AMIC #### [facility] [address] [address] [address] Sully Jackson Color (U) DK. YELLOW Normal YELLOW [facility] Comment on above: Performed By: #### U AMIC #### [facility] [address] [address] [address] Sully Jackson Crystals LM Nom (Urine sed) SEEN Abnormal NONE SEEN [facility] Comment on above: Performed By: #### U AMIC #### [facility] [address] [address] [address] Sully Jackson Epithelial cells LM Ql (Urine sed) RARE Normal NONE SEEN /RARE [facility] Comment on above: Performed By: #### U AMIC #### [facility] [address] [address] [address] Sully Jackson Glucose Ql (U) Negative Normal NEGATIVE [facility] Comment on above: Performed By: #### U AMIC #### [facility] [address] [address] [address] Sully Jackson Hemoglobin Ql (U) Negative Normal NEGATIVE [facility] Comment on above: Performed By: #### U AMIC #### [facility] [address] [address] [address] Sully Jackson HYALINE CAST MODERATE Normal [facility] Comment on above: Performed By: #### U AMIC #### [facility] [address] [address] [address] Sully Jackson Ketones Ql (U) TRACE Abnormal NEGATIVE [facility] Comment on above: Performed By: #### U AMIC #### [facility] [address] [address] [address] Sully Jackson LEUKOCYTES Negative Normal NEGATIVE [facility] Comment on above: Performed By: #### U AMIC #### [facility] [address] [address] [address] Sully Jackson MUCOUS SMALL Abnormal NONE SEEN [facility] Comment on above: Performed By: #### U AMIC #### [facility] [address] [address] [address] Sully Jackson Nitrite Ql (U) Negative Normal NEGATIVE [facility] Comment on above: Performed By: #### U AMIC #### [facility] [address] [address] [address] Sully Jackson pH (U) 5.0 [pH] Normal 5-9 [facility] Comment on above: Performed By: #### U AMIC #### [facility] [address] [address] [address] Sully Jackson RBC 0-2 Normal 0-2 [facility] Comment on above: Performed By: #### U AMIC #### [facility] [address] [address] [address] Sully Jackson SPEC GRAVITY >=1.030 Abnormal 1.005-<=1.025 [facility] Comment on above: Performed By: #### U AMIC #### [facility] [address] [address] [address] Sully Jackson UA PROTEIN 100 mg/dl Abnormal NEGATIVE/ TRACE [facility] Comment on above: Performed By: #### U AMIC #### [facility] [address] [address] [address] Sully Jackson Urobilinogen Qn (U) 0.2 {Deyvi'U}/dL Normal 0.2 - 1. 0 [facility] Comment on above: Performed By: #### U AMIC #### [facility] [address] [address] [address] Sully Jackson WBC 2-5 Abnormal NONE SEEN [facility] Comment on above: Performed By: #### U AMIC #### [facility] [address] [address] [address] Sully Jackson Encounters Encounter Date Encounter Type Care Provider Facility Start: 04-19-2024 ambulatory Eugenio MONROE Facility :[facility] Start: 02-22-2024 End: 02-22-2024 ambulatory MATEUS FABIAN Not Available Start: 01-20-2024 End: 01-20-2024 ambulatory MATEUS FABIAN Not Available Start: 01-12-2024 End: 01-12-2024 ambulatory Mateus Fabian Facility:[facility] Start: 01-12-2024 End: 01-12-2024 ambulatory Lucy Lipscomb Work Phone: [facility] Work Phone: Start: 01-12-2024 End: 01-12-2024 Departed Referred Lucy Lipscomb Work Phone: [facility] [employer] Work Phone: Start: 01-12-2024 End: 01-12-2024 Patient encounter procedure Mateus Fabian DO Work Phone: [facility] Comment on above: Deviated nasal septu m (Primary Dx) Start: 01-05-2024 End: 01-05-2024 ambulatory Mateus Fabian Facility:[facility] Start: 01-05-2024 Encounter for other preprocedural examination [facility] Start: 01-05-2024 Encounter for preprocedural laboratory examination [facility] Start: 01-05-2024 End: 01-05-2024 Patient encounter procedure Lucy Lipscomb Work Phone: [facility] Work Phone: Start: 01-05-2024 End: 01-05-2024 ambulatory Lucy Lipscomb Work Phone: [facility] Comment on above: Type 2 diabetes leah itus with diabetic neuropathy, without long-term current use of insulin ([facility]) (Primary Dx) Start: 10-23-2023 ambulatory Eugenio MONROE Facility:[facility] Start: 02-18-2023 End: 02-19-2023 ambulatory ISAÍAS NICOLASA RUEL Facility:[facility] Procedures Date Procedure Procedure Detail Performing Clinician Start: 02-18-2023 PSA screening ISAÍAS LIPSCOMB Comment on above: Performed By: #### P [facility] #### [facility] [address] [place] [address] Dr. Sully Jackson Plan of Treatment Date Care Activity Detail Author Start: 01-20-2024 End: 01-20-2024 Patient encounter procedure 01/20/2024 3:00 PM EST Office Visit [facility] [address] [place] [address] Mateus Fabian, DO [address] [place] [address] [facility] Start: 01-12-2024 End: 01-12-2024 Patient encounter procedure 01/12/2024 1:00 PM EST Procedure Visit [facility] Ayeshatangela Mateus Dale, DO [address] [place] [address] [facility] Start: 10-14-2022 Pneumococcal Vaccine : 65+ Years (2 - PCV) Pneumococcal Vaccine: 65+ Years (2 - PCV) [facility] Start: 1972 Urine screening for protein Diabetes: Urine Protein Screening [facility] Start: 1963 Glaucoma screening Diabetes: R etinopathy Screening [facility] Start: 1955 Hemoglobin A1c measurement Diabetes: Hemoglobin A1C [facility] Start: 1955 Medicare Annual Well ness (AWV) Medicare Annual Wellness (AWV) [facility] Start: 1955 Screening for malign ant neoplasm of colon [facility] Payers Date Payer Category Payer Self-pay 2021 Medicare ANTHEM MEDICARE ADVANTAGE ANTHEM MEDICARE ADVANTAGE [id number] 2021-Present [address] [place] [address] [id number] 1959 Unknown [id number] 1955 Unknown [id number] 1953 Unknown [id number] 1953 Unknown [id number] 1953 Unknown [id number] 9 Unknown [id number] Unknown [id number] Social History Date Type Detail Facility Tobacco smoking stat us IDIS Unknown if ever smoked [facility] Start: 1955 Sex Assigned At Male [facility] Start: 08-21-2023 Tobacco smoking status NHIS Never smoked tobacco [facility] Start: 08-21-2023 Tobacco use and exposure Smokeless tobacco non-user [facility] Start: 09-23-2023 Alcohol intake Lifetime non-drinker (finding) [facility] Start: 09-23-2023 History of Social function [facility] Start: 09-23-2023 Tobacco use panel [facility] Start: 08-21-2023 Alcohol Comment caffeine intake : 1-2 cups per day [facility] Start: 08-25-2023 Gender identity Identifies as male gender (finding) [facility] Start: 08-25-2023 Sexual orientation Heterosexual (finding) [facility] Medical Equipment Procedure Code Equipment Code Equipment Origin al Text Equipment Identifier Dates TEST TWICE A DAY [id number] Start: 12-15-2022 History of Present illness Narrative 01-12-2024 Mateus Fabian DO - 01/12/2024 1:00 PM EST Note Date & Type Note Facility 01-12-2024 History of Presen t illness Narrative mmm documented in this encounter [facility] Evaluation note Note Date & Type Note Facility Evaluation note No assessment information availa [facility] Work Phone: Evaluation note Note Date & Type Note Facility Evaluation note Diagnosis Type 2 diabetes mellitus with diabetic neuropathy, without long-term current use of insulin ([facility])- Primary documented in this encounter [facility] Evaluation note Note Date & Type Note Facility Evaluation note Diagnosis Deviated nasal septum- Primary documented in this encounter [facility] Summary Purpose Family History No Family History Records FoundNo Family History Records FoundNo Family History Records FoundNo Family History Records Found Advance Directives No Advanced Directives Records Found Advance Directive Response Recorded Date/ Time Advance Directives No January 05, 2024 2:06pm Chief Complaint and Reason for Visit Chief Complaint Z01.812 Additional Source Comments (unrecognized sect ion and content) No Status Records FoundNo Status Records FoundNo Status Records FoundNo Status Records Found INFORMATION SOURCE (unrecogn ized section and content) DATE CREATED AUTHOR 02/22/2023 [facility] DATE CREATED AUTHOR AUTHOR'S ORGANIZ ATION 01/27/[address] [facility] DATE CREATED AUTHOR AUTHOR'S ORGANIZ ATION 02/17/2024 [facility] DATE CREATED AUTHOR AUTHOR'S ORGANIZ ATION 02/23/2024 [facility] [employer] Care Teams (unrecognized sec tion and content) Team Status: Active Member Role Status Dates Lucy Lipscomb Primary Care Provider Active Team Status: Inactive Member Role Status Dates Mateus Fabian DO Attending Provider Active S tart: January 05, 2024 End: January 05, 2024 Lucy Lipscomb Primary Care Provider Active Sta rt: January 05, 2024 End: January 05, 2024 [employer] Relationship Specialty Start Date End Date Emerson Rowland MD PCP - General Family Medicine 06/15/23 Lucy Lipscomb NP [address] [place] [address] Referring Physician Nurse Practitioner 06/15/23 Team Status: Inactive Member Role Status Dates Lucy Lipscomb Primary Care Provider Active Sta rt: January 12, 2024 End: January 12, 2024 Mateus Fabian DO Attending Provider Active S tart: January 12, 2024 End: January 12, 2024 Goals (unrecognized section and content) Goals may be documented in a n alternate sectionGoals may be documented in an alternate section FOR RECORDS PERTAINING TO PATIENTS WHO ARE OR HAVE BEEN ENROLLED IN A CHEMICAL DEPENDENCY/SUBSTANCEABUSE PROGRAM, SOME INFORMATION MAY BE OMITTED. This clinical summary was aggregated from multiple sources. Caution should be exercised in using it in the provision of clinical care. This summary normalizes information from multiple sources, and as a consequence, information in this document may materially change the coding, format and clinical context of patient data. In addition, data may be omitted in some cases. CLINICAL DECISIONS SHOULD BE BASED ON THE PRIMARY CLINICAL RECORDS. [facility] [employer] [facility] provides no warranty or guarantee of the accuracy or completeness of information in this document.
== END 2024-09-06 00:55 | disposition home or self-care (01) ==
PROVIDERS: Emergency Provider Emergency Medicine; PCP Nurse Practitioner
DX: S90.32XA Contusion of left foot, initial encounter (principal); W20.8XXA Other cause of strike by thrown, projected or falling object, initial encounter
CPT/HCPCS: 73630; 99283